=== PATIENT | male | born 1975 | race Caucasian/White ===

== ENCOUNTER 2018-10-31 06:53 | Day surgery (SDC) | payer BC ==
[~2018-10-31] VITALS: Ht 185.4 cm; Wt 96.0 kg
[2018-10-31] MEDS ORDERED: PROTONIX 40MG T40 MG PO (07:23)
[2018-10-31 07:39] VITALS: BP 144/83; PULSE 69; TEMP 98.7
[2018-10-31 08:25] VITALS: BP 111/70; PULSE 76; TEMP 97.5
--- NOTE | 2018-10-31 08:25 | NUR ---
PT AMBULATES FROM CART WITH ASSISTANCE TO BAY 5. PT DENIES C/O. VITAL SIGNS STABLE.CALL LIGHT NEXT TO PT. PT IN ROOM WITH PT.
[2018-10-31 08:40] VITALS: BP 120/76; PULSE 88
--- NOTE | 2018-10-31 08:40 | NUR ---
PT CONTINUES TO DENY C/O. VITAL SIGNS STABLE. PT DRINKING WATER AND EATING MUFFIN. CALL LIGHT WITHIN REACH. PT IN ROOM. DISCHARGE INSTRUCTIONS REVIEWED WITH PT AND PT . BOTH VERBALIZES UNDERSTANDING.
--- NOTE | 2018-10-31 08:55 | NUR ---
IV TAKEN OUT. NO REDNESS OR SWELLING. DRESSING DRY AND INTACT. PT TOLERATED WELL. WHEELCHAIR RIDE TO CAR WITH ORTHO ASSISTANT WITH ASSISTANCE.
== END 2018-10-31 09:00 | disposition home or self-care (01) ==
LOC: SDCO 06:53
DX: K21.9 Gastro-esophageal reflux disease without esophagitis (principal); K44.9 Diaphragmatic hernia without obstruction or gangrene
CPT/HCPCS: OP; J2250; J3010; J7030

== ENCOUNTER → 2019-04-03 | Outpatient (CLI) | payer BC ==
[~2019-04-03] MED LIST: PROTONIX 40MG T40 MG PO
== END ==
LOC: COL.RAD 10:01
DX: D17.79 Benign lipomatous neoplasm of other sites (principal)